=== PATIENT | female | born 1965 | race Hispanic/Latino ===

== ENCOUNTER 2018-08-02 13:06 | Emergency (ER) | payer MEDICAID ==
[2018-08-02 13:06] VITALS: BMI 21.9
[2018-08-02 14:15] VITALS: BP 135/84; PULSE 82; RESP 18; TEMP 98; O2SAT 100
--- NOTE | 2018-08-02 16:23 | C.PDOC ---
History Of Present Illness 53 year old female presents to the ED requesting alcohol detox. Patient admits she drinks heavily on weekends, and states her last drink was today (Thursday). Patient denies drug use or any physical complaints at this time. Time Seen by Provider: 08/02/18 13:22 Chief Complaint (Nursing): Substance Abuse History Per: Patient History/Exam Limitations: no limitations Onset/Duration Of Symptoms: Hrs Current Symptoms Are (Timing): Still Present Modifying Factor(s): Alcohol Involuntary Hold By: None Recent travel outside of the [place]: No Additional History Per: Patient Past Medical History Reviewed: Historical Data, Nursing Documentation, Vital Signs Vital Signs: Last Vital Signs Temp 98 F 08/02/18 14:14 Pulse 82 08/02/18 14:14 Resp 18 08/02/18 14:14 BP 135/84 08/02/18 14:14 Pulse Ox 100 08/02/18 14:14 - Medical History PMH: Anxiety, Depression, HTN, Hyperlipidemia, Seizures Denies: Diabetes, Hepatitis, HIV, Chronic Kidney Disease, Sexually Transmitted Disease Surgical History: No Surg Hx - [facility] Procedures DETOXIFICATION SERVICES FOR SUBSTANCE ABUSE TREATMENT (10/16/15) MEDS MGMT FOR SUBSTANCE ABUSE TREATMENT, OTH REPL MED (04/06/15) Family History: States: Unknown Family Hx - Social History Hx Tobacco Use: Yes Hx Alcohol Use: Yes Hx Substance Use: No - Immunization History Hx Tetanus Toxoid Vaccination: No Hx Influenza Vaccination: No Hx Pneumococcal Vaccination: No Review Of Systems Psych: Positive for: Other (alcohol detox ) Physical Exam - Physical Exam Appears: Non-toxic, No Acute Distress Skin: Normal Color, Warm, Dry Head: Atraumatic, Normacephalic Eye(s): bilateral: Normal Inspection Oral Mucosa: Moist Neck: Supple Chest: Symmetrical, No Deformity, No Tenderness Cardiovascular: Rhythm Regular, No Murmur Respiratory: Normal Breath Sounds, No Rales, No Rhonchi, No Wheezing Extremity: Normal ROM, Capillary Refill (less than 2 seconds ) Neurological/Psych: Oriented x3, Normal Speech, Normal Cognition ED Course And Treatment O2 Sat by Pulse Oximetry: 100 (on RA ) Pulse Ox Interpretation: Normal Medical Decision Making Medical Decision Making: Progress: Patient informed about the unavailability of detox beds at this time. Patient is provided with information to contact other facilities. Crisis staff has recorded patient's information for possible future admission. Disposition - Disposition Referrals: [facility], [Non-Staff] - Disposition: HOME/ ROUTINE Disposition Time: 13:35 Condition: GOOD Additional Instructions: SARAH VIEIRA, thank you for letting us take care of you today. The emergency medical care you received today was directed at your acute symptoms. If you were prescribed any medication, please fill it and take as directed. It may take several days for your symptoms to resolve. Return to the Emergency Department if your symptoms worsen, do not improve, or if you have any other problems. Please contact your doctor or call one of the physicians/clinics you have been referred to that are listed on the Patient Visit Information form that is in cluded in your discharge packet. Bring any paperwork you were given at discharge with you along with any medications you are taking to your follow up visit. Our treatment cannot replace ongoing medical care by a primary care provider outside of the emergency department. Thank you for allowing the [facility] team to be part of your care today. Follow up with one of the detox programs or with our program when a bed is available. Instructions: Alcohol Abuse and Alcoholism (DC) Forms: [employer] (Lao), Work Excuse - Clinical Impression Clinical Impression: Alcohol dependence - PA / [employer] / Resident Statement MD/DO has reviewed & agrees with the documentation as recorded. - Scribe Statement The provider has reviewed the documentation as recorded by the Scribe (Naa Romero) Provider Attestation: All medical record entries made by the Scribe were at my direction and personally dictated by me. I have reviewed the chart and agree that the record accurately reflects my personal performance of the history, physical exam, medical decision making, and the department course for this patient. I have also personally directed, reviewed, and agree with the discharge instructions and disposition.
== END 2018-08-02 14:28 | disposition home or self-care (01) ==
LOC: C.ER 13:06
DX: F10.20 Alcohol dependence, uncomplicated (principal); E78.5 Hyperlipidemia, unspecified; I10 Essential (primary) hypertension; Z72.0 Tobacco use

== ENCOUNTER 2018-08-03 14:34 | Inpatient (IN) | payer MEDICAID ==
[2018-08-03 14:34] VITALS: BMI 21.9
--- NOTE | 2018-08-03 15:18 | C.PDOC ---
History Of Present Illness 53 y/o female presents to the ED requesting detox from alcohol. Last drink was 2 hours prior to arrival. Patient denies having any physical complaints. She also denies any SI, HI, or hallucinations. Time Seen by Provider: 08/03/18 14:53 Chief Complaint (Nursing): Substance Abuse History Per: Patient History/Exam Limitations: no limitations Onset/Duration Of Symptoms: Days Current Symptoms Are (Timing): Still Present Modifying Factor(s): Alcohol Associated Symptoms: denies: Suicidal Thoughts, Suicidal Plan Involuntary Hold By: None Past Medical History Reviewed: Historical Data, Nursing Documentation, Vital Signs Vital Signs: Last Vital Signs Temp 97.6 F 08/03/18 14:46 Pulse 105 H 08/03/18 14:46 Resp 18 08/03/18 14:46 BP 125/85 08/03/18 14:46 Pulse Ox 96 08/03/18 14:46 - Medical History PMH: Anxiety, Depression, HTN, Hyperlipidemia, Seizures Denies: Diabetes, Hepatitis, HIV, Chronic Kidney Disease, Sexually Transmitted Disease - [facility] Procedures DETOXIFICATION SERVICES FOR SUBSTANCE ABUSE TREATMENT (10/16/15) MEDS MGMT FOR SUBSTANCE ABUSE TREATMENT, OTH REPL MED (04/06/15) Family History: States: Unknown Family Hx - Social History Hx Tobacco Use: Yes Hx Alcohol Use: Yes Hx Substance Use: No - Immunization History Hx Tetanus Toxoid Vaccination: No Hx Influenza Vaccination: No Hx Pneumococcal Vaccination: No Review Of Systems Except As Marked, All Systems Reviewed And Found Negative. Constitutional: Negative for: Fever Cardiovascular: Negative for: Chest Pain Physical Exam - Physical Exam Additional Physical Exam Comments: Constitutional: No acute distress. Head: Normocephalic. Atraumatic. Eyes: PERRL. ENT: Moist mucous membranes. Neck: Supple. Cardiovascular: Regular rate. Radial pulse 2+ bilaterally. Chest: No tenderness. Respiratory: Clear to auscultation bilaterally. GI: Soft. Nontender. Nondistended. Back: No CVA tenderness. Musculoskeletal: No tenderness or swelling of extremities. Skin: No rash. Neurologic: Alert, no focal deficit. ED Course And Treatment - Laboratory Results Result Diagrams: 08/03/18 15:59 08/03/18 15:59 O2 Sat by Pulse Oximetry: 96 (RA) Pulse Ox Interpretation: Normal Medical Decision Making Medical Decision Making: Labs ordered for medical clearance. Patient is clinically sober as of 6:04pm. Medically clear. Disposition - Disposition Disposition: HOSPITALIZED Disposition Time: 17:30 Condition: GUARDED Forms: [employer] (Indonesian) - Clinical Impression Clinical Impression: Alcohol use disorder, severe, dependence - Scribe Statement The provider has reviewed the documentation as recorded by the Lina Hernández Provider Attestation: All medical record entries made by the Lina were at my direction and personally dictated by me. I have reviewed the chart and agree that the record accurately reflects my personal performance of the history, physical exam, medical decision making, and the department course for this patient. I have also personally directed, reviewed, and agree with the discharge instructions and disposition.
[2018-08-03 16:02] LABS: BASO # 0.1 K/uL (0.0-0.2); EOS # 0.1 K/uL (0.0-0.7); EOS % 1.1 % (0.0-4.0); HEMOGLOBIN 15.4 g/dL (11.0-16.0); LYMPH # 2.2 K/uL (1.0-4.3); LYMPH % 16.3 % (20.0-40.0); MEAN CORPUSCULAR HEMOGLOBIN 29.8 pg (27.0-31.0); MEAN CORPUSCULAR HGB CONC 32.8 g/dL (33.0-37.0); MEAN PLATELET VOLUME 7.6 fL (7.2-11.7); MONO # 0.4 K/uL (0.0-0.8); MONO % 3.2 % (0.0-10.0); NEUT # 10.4 K/uL (1.8-7.0); NEUT % 78.4 % (50.0-75.0); RBC 5.17 Mil/uL (3.80-5.20); WHITE BLOOD COUNT 13.3 K/uL (4.8-10.8)
[2018-08-03 16:08] LABS: HCG,QUALITATIVE URINE NEGATIVE (NEGATIVE)
[2018-08-03 16:10] LABS: URINE BILIRUBIN NEGATIVE (NEGATIVE); URINE BLOOD NEGATIVE (NEGATIVE); URINE CLARITY Clear (Clear); URINE COLOR Yellow (YELLOW); URINE GLUCOSE (UA) NORMAL (Normal); URINE LEUKOCYTE ESTERASE NEG Leu/uL (Negative); URINE PROTEIN NEGATIVE (NEGATIVE); URINE UROBILINOGEN NORMAL mg/dL (0.2-1.0)
[2018-08-03 16:19] LABS: ALB/GLOB RATIO 1.8 (1.0-2.1); ALBUMIN 5.2 g/dL (3.5-5.0); ALT/SGPT 25 U/L (9-52); AST/SGOT 45 U/L (14-36); BLOOD UREA NITROGEN 17 mg/dL (7-17); CALCIUM 9.4 mg/dl (8.6-10.4); GFR NON-AFRICAN AMERICAN > 60
[2018-08-03 16:21] LABS: BARBITURATES, UR NEGATIVE (NEGATIVE); BENZODIAZEPINES, UR NEGATIVE (NEGATIVE); OPIATES, UR NEGATIVE (NEGATIVE); PHENCYCLIDINE, UR NEGATIVE (NEGATIVE)
--- NOTE | 2018-08-03 18:28 | PCM.BM ---
<Tangela Rojas - Last Filed: 08/03/18 18:26> Treatment Plan Problems - Problems identified on initial assessmt Anxiety Related to Substance Use Date Initiated: 08/03/18 Time Initiated: 18:27 Assessment reference: NA Status: Active Defensive Coping Date Initiated: 08/03/18 Time Initiated: 18:27 Assessment reference: NA Status: Active Knowledge Deficit: Alcohol Use Date Initiated: 08/03/18 Time Initiated: 18:28 Assessment reference: NA Treatment assets and liabiliti Patient Assests: cooperative, negotiates basic needs, cognitively intact Patient Liabilities: substance abuse - Milieu Protocol Maintain good personal hygiene: daily Encourage regular showers, daily Remind patient to perform daily oral care, daily Assist patient to perform ADL's Conduct patient checks and document Observation sheet: Q15 minutes Maintain personal safety: every shift Educate patient to report safety concerns to staff, every shift Monitor environment for contraband/sharps Medication safety: Monitor for expected outcome, potential side effects: every shift, Assess barriers to learning: every shift, Assess readiness for medication education: every shift <Rose Perez - Last Filed: 08/05/18 12:07> - Diagnosis (1) Alcohol use disorder, severe, dependence Status: Acute Interventions: 08/05/18 12:05 * Assess 7x/week regarding severity of withdrawal * Educate regarding risks, benefits, side effects and alternatives of medications * Use Motivational Interviewing for abstinence * Use CBT for relapse prevention * Medication management for withdrawal symptoms * Encourage medication assisted treatment *
--- NOTE | 2018-08-04 09:59 | PCM.PSYCH ---
Initial Psychiatric Evaluation - Initial Psychiatric Evaluation Type of Admission: Voluntary Legal Status: Capacity Chief Complaint (in patient's own words): "I need to get sober again." History of Present Illness and Precipitating Events: Patient is a 53 year old female who is , has 2 children (18+), lives with a roommate in an apartment, and is currently employed as a manager corporate communications at [employer]. She presented to the ED on 08/03 and was admitted to the [facility] detox unit for alcohol detox. At that time her BAL was 362. Patient comments that she feels very tired. She has been drinking 1 pint of liqu or daily for the last 5 days. For the last 3 months she has been drinking heavily about once a week but comments that she had been progressively increasing the number of days that she drink on until she began drinking alcohol on multiple consecutive days, at which point she decided to check herself into the [facility] detox unit. Her last drink was on 08/03 when he had 0.5 pints of liquor prior to his admission here. Her longest time sober was 3 years. She regularly attends AA meetings but comments that she hadn't been going to as many lately. She relapsed from her sobriety when she went out with her coworkers and ended up drinking at a wine tasting event. She has had a seizure due to alcohol withdrawal within 3 months. She has been to detox units for alcohol here at [facility] twice in the past and once at [facility]. She has been to rehabilitation units for alcohol twice in the past, primarily at [facility] and [facility]. She has not been given naltrexone in the past. She denies any illicit drug use. She has smoked 8 cigarettes daily for the last 30 years. She currently denies suicidal ideations, homicidal ideations, visual hallucinations, and auditory hallucinations. PMHx: HTN, Hyperlipidemia, seizures 2/2 alcohol, CVA also not long ago (she is not sure) PsychHx: Major Depressive Disorder PsychHospitalizations: 10/17/15 and 04/07/15 both for alcohol FMPsychHx: Denies Medications: Gabapentin 250mg TID, topamax 25mg, and zoloft 25mg, but comments that she stopped taking her medications when she started drinking. Allergies: Penicillin, comments that her throat closes up. Current Medications: Active Medications Generic Name Dose Route Start Last Admin Trade Name Freq PRN Reason Stop Dose Admin Chlordiazepoxide 25 mg 08/04/18 00:00 08/04/18 06:14 Librium PO 08/07/18 23:59 25 mg Q6 JENNYFER Administration Taper Chlordiazepoxide 25 mg 08/03/18 18:59 08/04/18 09:44 Librium PO 25 mg Q4H PRN Administration Alcohol Withdrawal Clonidine HCl 0.1 mg 08/03/18 18:59 Catapres PO Q4H PRN Symptoms of alcohol withdrawl Hydroxyzine HCl 25 mg 08/03/18 18:28 08/03/18 19:11 Atarax PO 25 mg Q6 PRN Administration Anxiety Nicotine 1 patch 08/03/18 15:15 08/04/18 09:45 Nicoderm Cq TD 1 patch DAILY JENNYFER Administration Trazodone HCl 50 mg 08/03/18 18:29 Desyrel PO HS PRN Insomnia Past Psychiatric History - Past Psychiatric History Previous Treatment History: Intensive Outpatient Pertinent Medical Hx (Current Medical&Sleep Prob, Allergies): Allergies Allergy/AdvReac Type Severity Reaction Status Date / Time Penicillins Allergy SWELLING Verified 10/16/15 16:24 Folic Acid 0.8 mg PO DAILY 04/06/15 Gabapentin [Neurontin] 300 mg PO TID #90 cap 04/11/15 traZODone [Desyrel] 100 mg PO HS PRN #30 tab 04/11/15 Aspirin [Aspirin Chewable] 81 mg PO DAILY #30 chew 10/23/15 Magnesium Oxide [Mag-Ox] 400 mg PO DAILY #30 tab 10/23/15 Sertraline [Zoloft] 50 mg PO DAILY #30 tab 10/23/15 Topiramate [Topamax] 25 mg PO BID #60 tab 10/23/15 Cholecalciferol (Vitamin D3) [Vitamin D3] 1,000 unit PO DAILY 08/02/18 Review of Systems - Psychiatric Psychiatric: Abnormal Sleep Pattern, Anhedonia, Anxiety, Behavioral Changes, Depression, Difficulty Concentrating. absent: Auditory Hallucinations, Homicidal Ideation, Suicidal Ideation, Visual Hallucinations Mental Status Examination - Personal Presentation Personal Presentation: Looks stated age - Affect Affect: Broad - Motor Activity Motor Activity: Calm - Reliability in Providing Information Reliability in Providing Information: Good - Speech Speech: Organized - Mood Mood: Depressed, Anxious - Formal Thought Process Formal Thought Process: No Impairment - Obsessions/Compulsions Obsessions: No Compulsions: No - Cognitive Functions Orientation: Person, Place, Situation, Time Sensorium: Alert Attention/Concentration: Attentive Abstract Thinking: [place] Judgement: Intact, as evidence by: Insight regarding need for hospitalization Memory: Recent intact, as evidence by: Ability to recall events of the day, Remote intact, as evidenced by: Ability to recall historical events - Risk Risk: Seizure, Withdrawal, Diminished functioning - Strength & Assets Inventory Strength & Assets Inventory: Cooperative - Limitations Limitations: Other DSM 5 DX - DSM 5 DSM 5 Diagnosis: Alcohol withdrawal Alcohol use disorder, severe Tobacco use disorder, moderate Major Depressive Disorder, severe - Recommended/Plan of Treatment Treatment Recommendations and Plan of Treatment: Taper with Librium Patient started on Naltrexone for management of cravings Gabapentin for augmentation if needed As needed medications Patient is to continue home meds. All risks, benefits and alternatives of the meds discussed, and the pt agreed and understood. Attend groups and activities Supportive therapy and psychoeducation [place] for abstinence CBT for relapse prevention Encourage MAT Refer to rehab or IOP, and self-help groups Teach healthy lifestyle methods, i.e. diet, exercise, meditation Smoking cessation with [facility] Nicotine patch if needed 34 min Projected ELOS: 4-5 days Prognosis: Good, with treatment - Smoking Cessation Smoking Cessation Initiated: Yes
--- NOTE | 2018-08-05 12:07 | PCM.PYCHPN ---
Psychiatric Progress Note - Psychiatric Progress Note Patient seen today, length of contact: 16 min Patient Chief Complaint: "I'm getting better" Problems Identified/Issues Discussed: The pt is seen, chart reviewed, case discussed with staff. The pt is compliant with medications and reports no side-effects. Symptoms are improving but needs more time to stabilize. Pt attends groups and activities. Support given, psycho-education provided. After care discussed. Medication Change: Yes (detox changes daily) Medical Record Reviewed: Yes Mental Status Examination - Cognitive Function Orientation: Person, Place, Situation, Time Memory: Intact Attention: WNL Concentration: WNL Association: WNL Fund of Knowledge: WN - Mood Mood: Depressed, Anxious - Affect Affect: Broad - Speech Speech: Appropriate - Formal Thought Process Formal Thought Process: No Impairment - Suicidal Ideation Suicidal Ideation: No - Homicidal Ideation Homicidal Ideation: No Goal/Treatment Plan - Goal/Treatment Plan Need for Continued Stay: Discharge may exacerbated symptoms, Severe functional impairment Progress Toward Problem(s) and Goals/Treatment Plan: Taper with Librium Patient started on Naltrexone for management of cravings Gabapentin for augmentation if needed As needed medications Patient is to continue home meds. All risks, benefits and alternatives of the meds discussed, and the pt agreed and understood. Attend groups and activities Supportive therapy and psychoeducation [place] for abstinence CBT for relapse prevention Encourage MAT Refer to rehab or IOP, and self-help groups Teach healthy lifestyle methods, i.e. diet, exercise, meditation Smoking cessation with [place] Nicotine patch if needed Estimated Date of D/C: 08/07/18
[2018-08-05] MEDS ORDERED: Magnesium Hydroxide Susp 30 ml UD PO ONE (12:15)
--- NOTE | 2018-08-06 14:47 | PCM.PYCHPN ---
Psychiatric Progress Note - Psychiatric Progress Note Patient seen today, length of contact: 16 min Patient Chief Complaint: "I'm happy that I came here" Problems Identified/Issues Discussed: The pt is seen again, chart reviewed, and case is discussed with the team. The pt denies any side-effects from meds. Attends activities and groups, brief individual therapy provided Not ready for discharge due to ongoing symptoms and high relapse risk. Likely tomorrow though A letter is prepared for her work After care discussed again. Medication Change: Yes (detox changes daily) Medical Record Reviewed: Yes Mental Status Examination - Cognitive Function Orientation: Person, Place, Situation, Time Memory: Intact Attention: WNL Concentration: WNL Association: WNL Fund of Knowledge: WNL - Mood Mood: Depressed, Anxious - Affect Affect: Broad - Speech Speech: Appropriate - Formal Thought Process Formal Thought Process: No Impairment - Suicidal Ideation Suicidal Ideation: No - Homicidal Ideation Homicidal Ideation: No Goal/Treatment Plan - Goal/Treatment Plan Need for Continued Stay: Discharge may exacerbated symptoms, Severe functional impairment Progress Toward Problem(s) and Goals/Treatment Plan: Taper with Librium Patient started on Naltrexone for management of cravings Gabapentin for augmentation if needed As needed medications Patient is to continue home meds. All risks, benefits and alternatives of the meds discussed, and the pt agreed and understood. Attend groups and activities Supportive therapy and psychoeducation [place] for abstinence CBT for relapse prevention Encourage MAT Refer to rehab or IOP, and self-help groups Teach healthy lifestyle methods, i.e. diet, exercise, meditation Smoking cessation with [place] Nicotine patch if needed Estimated Date of D/C: 08/07/18
[2018-08-07 06:45] VITALS: RESP 18
[2018-08-07 09:14] VITALS: BP 99/68; PULSE 75; TEMP 97.6; O2SAT 99
== END 2018-08-07 13:50 | disposition home or self-care (01) | DRG 750 ==
LOC: C.ER 14:34 → C.7D 18:11
PROVIDERS: ADMIT Psychiatry & Neurology Psychiatry; ATTEND Psychiatry & Neurology Psychiatry
PROC: HZ2ZZZZ Detoxification Services for Substance Abuse Treatment (ICD-10-PCS; principal; 2018-08-03)
PROC: HZ52ZZZ Individual Psychotherapy for Substance Abuse Treatment, Cognitive-Behavioral (ICD-10-PCS; 2018-08-03)
PROC: HZ59ZZZ Individual Psychotherapy for Substance Abuse Treatment, Supportive (ICD-10-PCS; 2018-08-03)
PROC: HZ56ZZZ Individual Psychotherapy for Substance Abuse Treatment, Psychoeducation (ICD-10-PCS; 2018-08-03)
PROC: HZ42ZZZ Group Counseling for Substance Abuse Treatment, Cognitive-Behavioral (ICD-10-PCS; 2018-08-03)
PROC: HZ46ZZZ Group Counseling for Substance Abuse Treatment, Psychoeducation (ICD-10-PCS; 2018-08-03)
PROC: GZHZZZZ Group Psychotherapy (ICD-10-PCS; 2018-08-03)
PROC: GZ58ZZZ Individual Psychotherapy, Cognitive-Behavioral (ICD-10-PCS; 2018-08-03)
PROC: GZ56ZZZ Individual Psychotherapy, Supportive (ICD-10-PCS; 2018-08-03)
DX: F10.230 Alcohol dependence with withdrawal, uncomplicated (principal); F32.2 Major depressive disorder, single episode, severe without psychotic features; F41.9 Anxiety disorder, unspecified; F17.210 Nicotine dependence, cigarettes, uncomplicated; I10 Essential (primary) hypertension; E78.5 Hyperlipidemia, unspecified; Y90.8 Blood alcohol level of 240 mg/100 ml or more